=== PATIENT | female | born 1945 | race Caucasian/White ===

== ENCOUNTER → 2016-10-09 | Outpatient (CLI) | payer MEDICARE, BC ==
[~2016-10-09] MED LIST: BUPROBAN150 MG PO; BYSTOLIC5 MG PO; DESYREL 100MG100 MG PO; GLUCOPHAGE500 MG/TAB PO; GRALISE600 MG PO; HCTZ 25MG TAB25 MG PO; IMODIUM 2MG CAPS2 MG; LEVOXYL0.125 MG PO; LYCOPENE; MORPHINE 1515 MG/TAB PO; NITROSTAT0.4 MG/TAB SL; NORCO 325 MG-101 TAB PO; PREDNISONE20 MG PO; PREVACID 30MG30 M1 PO; PROAIR HFA0.09 MG/AC IH; REFRESH TEARS 115 ML OP; SAVELLA100 MG PO; SINGULAIR 110 MG/TAB PO; TOPAMAX50 MG PO; ZOCOR 20MG20 MG PO; [UNRECOGNIZED DRUG - OTHER]; [UNRECOGNIZED DRUG - OTHER] TP; allergy shot
== END ==
LOC: COL.RAD 10-08 13:00
DX: M53.3 Sacrococcygeal disorders, not elsewhere classified (principal); G89.29 Other chronic pain; K21.9 Gastro-esophageal reflux disease without esophagitis; I10 Essential (primary) hypertension; E11.9 Type 2 diabetes mellitus without complications; Z79.899 Other long term (current) drug therapy; Z79.4 Long term (current) use of insulin
CPT/HCPCS: G0260; J3301